=== PATIENT | male | born 1985 | race African-American/Black ===

== ENCOUNTER 2018-12-19 22:03 | Emergency (ER) | payer OTHER ==
[~2018-12-19] VITALS: Ht 182.9 cm; Wt 100.0 kg
[2018-12-19 22:17] VITALS: BP 119/69
== END 2018-12-20 01:45 | disposition home or self-care (01) ==
LOC: ED 12-20 01:04
DX: L02.31 Cutaneous abscess of buttock (principal); K40.91 Unilateral inguinal hernia, without obstruction or gangrene, recurrent
CPT/HCPCS: 10060; 99284

== ENCOUNTER 2018-12-21 18:03 | Emergency (ER) | payer SELFPAY ==
[~2018-12-21] VITALS: Ht 182.9 cm; Wt 98.4 kg
[2018-12-21 18:08] VITALS: BP 126/74
== END 2018-12-21 19:26 | disposition home or self-care (01) ==
LOC: ED 19:05
DX: L02.31 Cutaneous abscess of buttock (principal)
CPT/HCPCS: 99283; J3490

== ENCOUNTER 2018-12-23 20:34 | Emergency (ER) | payer OTHER ==
[~2018-12-23] VITALS: Ht 182.9 cm; Wt 99.8 kg
[2018-12-23 20:37] VITALS: BP 124/76
== END 2018-12-23 21:15 | disposition home or self-care (01) ==
LOC: ED 21:12
DX: Z48.01 Encounter for change or removal of surgical wound dressing (principal); F17.210 Nicotine dependence, cigarettes, uncomplicated
CPT/HCPCS: 99283